=== PATIENT | male | born 1960 | race Caucasian/White ===

== ENCOUNTER 2024-05-23 15:14 | Emergency (ER) | payer OTHER ==
[~2024-05-23] VITALS: Ht 193 cm; Wt 61.2 kg
[2024-05-23] MEDS ORDERED: ATOR40TA PO (16:07)
[2024-05-23] MEDS ORDERED: NICODERM CQ1 EA11 TOP (16:07)
[2024-05-23] MEDS ORDERED: LOSA25 PO (16:07)
[2024-05-23] MEDS ORDERED: THERA-D2000 UNIT PO (16:08)
[2024-05-23] MEDS ORDERED: NS 1,000 ML IV SCH (16:45)
[2024-05-23] MEDS ORDERED: Thiamine HCl 100 MG in NS 50 ML IV ONE (16:50)
[2024-05-23] MEDS ORDERED: Folic Acid 1 MG in NS 50 ML IV ONE (16:50)
[2024-05-23 17:36] LABS: BASOPHILS ABSOLUTE AUTO 0.06 K/mm3 (0.00-0.23); BASOPHILS PERCENT AUTO 1 % (0-2); EOSINOPHILS ABSOLUTE AUTO 0.06 K/mm3 (0.00-0.68); EOSINOPHILS PERCENT AUTO 1 % (0-6); Hematocrit 36.8 % (37.0-53.0); IMMATURE GRAN ABSOLUTE AUTO 0.01 K/mm3 (0.00-0.10); IMMATURE GRAN PERCENT AUTO 0 % (0-1); LYMPHOCYTES ABSOLUTE AUTO 1.27 K/mm3 (0.84-5.20); LYMPHOCYTES PERCENT AUTO 18 % (21-46); MONOCYTES ABSOLUTE AUTO 1.21 K/mm3 (0.16-1.47); MONOCYTES PERCENT AUTO 17 % (4-13); Mean Corpuscular HGB 34.5 pg (26.0-34.0); Mean Corpuscular HGB Conc 35.3 g/dL (31.5-36.5); Mean Corpuscular Volume 98 fL (80-100); Mean Platelet Volume 10.2 fL (9.1-12.4); NEUTROPHILS ABSOLUTE AUTO 4.47 K/mm3 (1.96-9.15); NEUTROPHILS PERCENT AUTO 63 % (41-73); Platelet Count 170 K/mm3 (150-400); RDW Coefficient Variation 12.7 % (11.7-14.2); RDW Standard Deviation 45.3 fL (35.1-46.3); Red Blood Cell Count 3.77 M/mm3 (4.30-5.90); White Blood Cell Count 7.08 K/mm3 (4.00-11.30)
[2024-05-23 18:11] LABS: Albumin, Blood 3.4 g/dL (3.4-5.0); Bilirubin, Total 2.9 mg/dL (0.1-1.0); Bun/Creatinine Ratio 11.2 (12.0-20.0); Calcium, Blood 8.3 mg/dL (8.5-10.1); Creatinine, Blood 0.62 mg/dL (0.60-1.20); Globulin, Blood 3.4 g/dL (2.2-4.0); Potassium, Blood 2.8 mmol/L (3.5-5.5); Total Protein, Blood 6.8 g/dL (6.4-8.2)
[2024-05-23] MEDS ORDERED: Potassium Chloride 40 MEQ in NS 250 ML IV ONE (20:55)
[2024-05-23] MEDS ORDERED: Potassium Chloride 20 MEQ TabCR PO ONE (20:55)
[2024-05-23 21:42] LABS: Magnesium, Blood 1.1 mg/dL (1.6-2.4)
[2024-05-23] MEDS ORDERED: Magnesium Sulf 2 GM/Water 50ML 50 ML IV ONE (22:10)
== END 2024-05-24 03:00 | disposition home or self-care (01) ==
LOC: ER 15:14
PROVIDERS: Physician Assistant
DX: E87.6 Hypokalemia (principal); E83.51 Hypocalcemia; E83.42 Hypomagnesemia; E86.0 Dehydration; R41.82 Altered mental status, unspecified; F10.129 Alcohol abuse with intoxication, unspecified; F10.139 Alcohol abuse with withdrawal, unspecified; Z79.899 Other long term (current) drug therapy
CPT/HCPCS: 74177; 80053; 83690; 83735; 85025; 96365-59; 96366; 96367; 96368; 99284-25; A9270; J3411; J3475; J3480; J7030; J7050; Q9967